=== PATIENT | male | born 1965 | race Hispanic/Latino ===

== ENCOUNTER 2023-07-31 10:52 | Emergency (ER) | payer SELFPAY ==
[2023-07-31 11:44] LABS: Specific Gravity 1.021 (1.005-1.030); Sqamous Epithelial None Seen /HPF (None Seen); Urine Bacteria None Seen /HPF (<20); Urine Bilirubin NEGATIVE (Negative); Urine Blood Negative (Negative); Urine Clarity Clear (Clear); Urine Color Yellow (Yellow); Urine Culture Reflex Order NOT NEEDED; Urine Glucose NEGATIVE (Negative); Urine Ketones NEGATIVE (Negative); Urine Micro Reflex YN NO BILL MICROSCOPIC; Urine Mucus Slight /HPF (None Seen); Urine Nitrite NEGATIVE (Negative); Urine Protein NEGATIVE (Negative); Urine RBC <5 /HPF (None Seen); Urine Urobilinogen Normal (Normal)
[2023-07-31 12:37] LABS: Absolute Basophils 0.1 K/uL (0-0.5); Absolute Eosinophils 0.1 K/uL (0-0.5); Absolute Lymphocytes (CBC) 1.6 K/uL (0.7-4.9); Absolute Monocytes 0.6 K/uL (0.1-1.3); Absolute Neutrophil 3.4 K/uL (1.8-8.0); Basophils % 1.5 % (0-1.3); Eosinophils % 2.1 % (0-4.4); Hematocrit 43.5 % (39.6-49.0); Hemoglobin 14.7 g/dL (13.6-17.9); MCH 29.8 pg (27.0-35.0); MCHC 33.8 g/dL (32.0-36.0); MCV 88.2 fL (80-100); Monocytes % 10.2 % (3.3-12.3); Neutrophils % 58.2 % (41.7-73.7); Platelets 344 thou/uL (152-406); RBC Red Blood Cell Count 4.93 M/uL (4.33-5.43); Red Cell Distribution Width 13.6 % (12.1-15.2)
[2023-07-31 12:55] LABS: Albumin 2.8 g/dL (3.4-5.0); Albumin/Globulin Ratio 0.7 (1.1-1.8); Anion Gap 8.6 mEq/L (5.0-15.0); Bilirubin Total 0.2 mg/dL (0.2-1.0); Globulin 4.3 g/dL (2.3-3.5); Potassium 3.6 mEq/L (3.5-5.1); Protein, Total 7.1 g/dL (6.4-8.2)
--- NOTE | 2023-07-31 13:55 | ER ---
Nurse's Notes [facility] Name: Bill Almaraz Age: 57 yrs Sex: Male : 1965 Arrival Date: 07/31/2023 Time: 10:52 Bed 18 Private MD: Diagnosis: Dysuria Presentation: 07/30 11:04 Chief complaint: Patient's son or daughter states: Pain with urination, bilateral flank jl7 pain x 5 days, clinic put him on Bactrim and Pyridium Monday. Symptoms worse, with penile pressure/pain in addition to walt flank pain. Coronavirus screen: At this time, the client does not indicate any symptoms associated with coronavirus-19. Ebola Screen: No symptoms or risks identified at this time. Initial Sepsis Screen: Does the patient meet any 2 criteria? No. Patient's initial sepsis screen is negative. Does the patient have a suspected source of infection? No. Patient's initial sepsis screen is negative. Risk Assessment: Do you want to hurt yourself or someone else? Patient reports no desire to harm self or others. Onset of symptoms was July 27, 2023. 11:04 Method Of Arrival: Ambulatory 7 11:04 Acuity: THELMA 3 jl7 Triage Assessment: 11:07 General: Appears in no apparent distress. uncomfortable, Behavior is calm, cooperative, jl7 appropriate for age. Pain: Complains of pain in left flank, right flank and pelvis Pain currently is 7 out of 10 on a pain scale. Neuro: Level of Consciousness is awake, alert, obeys commands, Oriented to person, place, time, situation. Cardiovascular: Patient's skin is warm and dry. Respiratory: Airway is patent Respiratory effort is even, unlabored, Respiratory pattern is regular, symmetrical. : Reports burning with urination, pain in bilateral flank(s). Derm: Skin is pink, warm \T\ dry. Historical: - Allergies: 11:07 No Known Allergies; jl7 - Home Meds: 11:07 Metformin Oral [Active]; jl7 - PMHx: 11:07 Diabetes mellitus; jl7 - PSHx: 11:07 None; jl7 - Immunization history:: Adult Immunizations unknown. - Infectious Disease History:: Denies. - Social history:: Smoking status: Patient denies any tobacco usage or history of. - Family history:: not pertinent. Screenin:20 [facility] ED Fall Risk Assessment (Adult) History of falling in the last 3 months, me1 including since admission No falls in past 3 months (0 pts) Confusion or Disorientation No (0 pts) Intoxicated or Sedated No (0 pts) Impaired Gait No (0 pts) Mobility Assist Device Used No (0 pt) Altered Elimination No (0 pt) Score/Fall Risk Level 0 - 2 = Low Risk Maintained a safe environment, Provided non-skid footwear, Hourly rounding (assess needs \T\ fall precautionary measures) done. Abuse screen: Denies threats or abuse. Nutritional screening: No deficits noted. Tuberculosis screening: No symptoms or risk factors identified. Assessment: 11:05 Reassessment: Dr. Benton in triage assessing pt. jl7 12:20 General: Appears comfortable, ill, well groomed, well developed, well nourished, me1 Behavior is calm, cooperative, appropriate for age, Reports Pain with urination, bilateral flank pain x 5 days, clinic put him on Bactrim and Pyridium Monday. Symptoms worse, with penile pressure/pain in addition to walt flank pain. Also reports pain to rectal area while voiding. Pain: Complains of pain in pelvis and back and right flank and left flank Pain does not radiate. Pain currently is 4 out of 10 on a pain scale. Quality of pain is described as tender, Pain began gradually, 2-3 days ago. Is continuous. Neuro: Level of Consciousness is awake, alert, obeys commands, Oriented to person, place, time, situation, Appropriate for age. Cardiovascular: Capillary refill < 3 seconds Patient's skin is warm and dry. Respiratory: Airway is patent Respiratory effort is even, unlabored, Respiratory pattern is regular, symmetrical. GI: No signs and/or symptoms were reported involving the gastrointestinal system. : No signs and/or symptoms were reported regarding the genitourinary system. : Reports burning with urination, since pain in right in left flank(s), penis. EENT: No signs and/or symptoms were reported regarding the EENT system. Derm: Skin is intact, is healthy with good turgor, Skin is pink, warm \T\ dry. Musculoskeletal: No signs and/or symptoms reported regarding the musculoskeletal system. Vital Signs: 11:04 BP 136 / 86; Pulse 81; Resp 17; Temp 97.3; Pulse Ox 97% ; Weight 68.04 kg; Height 5 ft. jl7 5 in. ; Pain 7/10; 12:20 BP 139 / 78; Pulse 69; Resp 15; Pulse Ox 100% on R/A; me1 13:00 BP 123 / 82; Pulse 66; Resp 15; Pulse Ox 98% on R/A; me1 14:03 BP 128 / 80; Pulse 65; Resp 15; Pulse Ox 99% on R/A; me1 11:04 Body Mass Index 24.96 (68.04 kg, 165.1 cm) jl7 11:04 Pain Scale: Adult 7 ED Course: 10:54 Patient arrived in ED. mr 10:55 Spnecer Benton MD is Attending Physician. rt 11:07 Triage completed. jl7 11:07 Arm band placed on right wrist. Patient placed in waiting room, Patient notified of jl7 wait time. 11:42 [facility]AM Sent. as6 12:03 Treasure Wilson, RN is Primary Nurse. ph 12:20 Patient has correct armband on for positive identification. Bed in low position. Call me1 light in reach. Side rails up X 1. Provided Education on: POC. Verbalized understanding. . Client placed on continuous cardiac and pulse oximetry monitoring. NIBP monitoring applied. Pulse ox on. NIBP on. 12:20 No provider procedures requiring assistance completed. me1 12:24 CMP Sent. me1 12:24 CBC with Diff Sent. me1 12:24 Initial lab(s) drawn, by me, sent to lab. Inserted saline lock: 22 gauge in right me1 antecubital area, using aseptic technique. 13:54 Carlos Turner MD is Referral Physician. rt 14:03 IV discontinued, intact, bleeding controlled, No redness/swelling at site. Pressure me1 dressing applied. Administered Medications: No medications were administered Medication: 12:20 VIS not applicable for this client. me1 Outcome: 13:54 Discharge ordered by . rt 14:03 Discharged to home ambulatory, with family, me1 14:03 Condition: stable 14:03 Discharge instructions given to patient, family, Instructed on discharge instructions, follow up and referral plans. medication usage, Demonstrated understanding of instructions, follow-up care, medications, Prescriptions given X 14:04 Patient left the ED. me1 Signatures: Ember Waldrop, Reg Reg mr Treasure Wilson, RN RN ph Savage Laura, RN RN jl7 Bayron Chao, GABRIELLE RN as6 Spencer Benton MD MD rt Chantell Giles RN RN me1 Corrections: (The following items were deleted from the chart) 11:08 11:07 PMHx: None; jl7 jl7 12:34 11:04 Chief complaint: Patient's son or daughter states: Pain with urination, bilateral me1 flank pain x 5 days, clinic put him on Bactrim and Pyridium Monday. Symptoms worse, with penile pressure/pain in addition to walt flank pain jl7
--- NOTE | 2023-07-31 13:55 | EDPHYS ---
Physician Documentation [facility] Name: Bill Almaraz Age: 57 yrs Sex: Male : 1965 Arrival Date: 07/31/2023 Time: 10:52 Bed 18 Private MD: ED Physician Spencer Benton HPI: 07/30 11:12 This 57 yrs old Male presents to ER via Ambulatory with complaints of Pain rt With Urination, Penile Pain. 11:21 Patient presents to the ED with burning with urination, back pain, pain to the penis rt since . Patient was seen at another hospital, was prescribed Bactrim and Pyridium. Patient states that symptoms have not improved. Does report urinary frequency. Denies other acute complaints at this time, symptoms are moderate in severity, no other aggravating or alleviating factors.. Historical: - Allergies: 11: No Known Allergies; jl7 - Home Meds: 11:07 Metformin Oral [Active]; jl7 - PMHx: 11:07 Diabetes mellitus; jl7 - PSHx: 11:07 None; jl7 - Immunization history:: Adult Immunizations unknown. - Infectious Disease History:: Denies. - Social history:: Smoking status: Patient denies any tobacco usage or history of. - Family history:: not pertinent. ROS: 11:21 Constitutional: Negative for fever, chills, and weight loss, Cardiovascular: Negative rt for chest pain, palpitations, and edema, Respiratory: Negative for shortness of breath, cough, wheezing, and pleuritic chest pain, Abdomen/GI: Negative for abdominal pain, nausea, vomiting, diarrhea, and constipation, Skin: Negative for injury, rash, and discoloration, Neuro: Negative for headache, weakness, numbness, tingling, and seizure, 11:21 Back: Positive for pain at rest, Negative for injury or acute deformity, 11:21 : Positive for burning with urination, penile pain, Exam: 11:21 Constitutional: This is a well developed, well nourished patient who is awake, alert, rt and in no acute distress. Head/Face: Normocephalic, atraumatic. Chest/axilla: Normal chest wall appearance and motion. Nontender with no deformity. No lesions are appreciated. Cardiovascular: Regular rate and rhythm with a normal S1 and S2. No gallops, murmurs, or rubs. Normal PMI, no JVD. No pulse deficits. Respiratory: Lungs have equal breath sounds bilaterally, clear to auscultation and percussion. No rales, rhonchi or wheezes noted. No increased work of breathing, no retractions or nasal flaring. Abdomen/GI: Soft, non-tender, with normal bowel sounds. No distension or tympany. No guarding or rebound. No evidence of tenderness throughout. Skin: Warm, dry with normal turgor. Normal color with no rashes, no lesions, and no evidence of cellulitis. MS/ Extremity: Pulses equal, no cyanosis. Neurovascular intact. Full, normal range of motion. Neuro: Awake and alert, GCS 15, oriented to person, place, time, and situation. Cranial nerves II-XII grossly intact. Motor strength 5/5 in all extremities. Sensory grossly intact. Cerebellar exam normal. Normal gait. 11:21 Back: No costovertebral angle tenderness, 11:55 : Normal external genitalia, skin is normal, no signs of candidiasis no testicular rt tenderness, swelling, discharge., Vital Signs: 11:04 BP 136 / 86; Pulse 81; Resp 17; Temp 97.3; Pulse Ox 97% ; Weight 68.04 kg; Height 5 ft. jl7 5 in. ; Pain 7/10; 12:20 BP 139 / 78; Pulse 69; Resp 15; Pulse Ox 100% on R/A; me1 13:00 BP 123 / 82; Pulse 66; Resp 15; Pulse Ox 98% on R/A; me1 14:03 BP 128 / 80; Pulse 65; Resp 15; Pulse Ox 99% on R/A; me1 11:04 Body Mass Index 24.96 (68.04 kg, 165.1 cm) jl7 11:04 Pain Scale: Adult jl7 MDM: 11:11 Patient medically screened. rt 17:37 Differential diagnosis: Dysuria, UTI, renal insufficiency. Data reviewed: vital signs, rt nurses notes, lab test result(s). Test considered but Not performed: CT: Benign abdominal examination, no signs or symptoms to suggest kidney stone, pyelonephritis. CT scan is not indicated. Care significantly affected by the following chronic conditions: Diabetes. Counseling: I had a detailed discussion with the patient and/or guardian regarding the historical points, exam findings, and any diagnostic results supporting the discharge/admit diagnosis, lab results, the need for outpatient follow up, to return to the emergency department if symptoms worsen or persist or if there are any questions or concerns that arise at home. 07/30 11:11 Order name: CBC with Diff; Complete Time: 13:08 rt 07/30 11:11 Order name: CMP; Complete Time: 13:08 rt 07/30 11:11 Order name: UAM; Complete Time: 11:51 rt Administered Medications: No medications were administered Disposition Summary: 07/31/23 13:54 Discharge Ordered Notes: Location: Home rt Condition: Stable rt Diagnosis - Dysuria rt Followup: rt - With: Carlos Turner MD - When: 5 - 6 days - Reason: Discharge Instructions: - Discharge Summary Sheet rt - Dysuria rt Forms: - Medication Reconciliation Form rt - Antibiotic Education rt - Prescription Opioid Use rt - Patient Portal Instructions rt - Leadership Thank You Letter rt Signatures: Dispatcher [employer] Savage Stewart RN RN Spencer Kellogg MD MD rt Corrections: (The following items were deleted from the chart) 11:08 11:07 PMHx: None; adriana jlCrystal
[2023-07-31 20:24] VITALS: TEMP 97.3
[2023-07-31 20:46] VITALS: BP 128/80; O2SAT 99
== END 2023-07-31 14:04 | disposition home or self-care (01) ==
LOC: ER 10:52
DX: R30.0 Dysuria (principal)
CPT/HCPCS: 36415; 80053; 81001; 85025